=== PATIENT | male | born 1955 | race Caucasian/White ===

== ENCOUNTER → 2023-07-07 10:56 | Outpatient (REF) | payer MEDICARE, OTHER, SELFPAY ==
[2023-07-07 12:50] LABS: Hepatitis B Surface Antigen Negative (Negative)
[2023-07-07 13:01] LABS: HIV Combo Negative (Negative)
[2023-07-07 13:07] LABS: Hepatitis C Antibody Negative (Negative)
== END ==
LOC: REG 10:56
PROVIDERS: ATTENDING PHYSICIAN Internal Medicine
DX: Z23 Encounter for immunization (principal)
CPT/HCPCS: 36415; 86803; 87340; 87389

== ENCOUNTER → 2024-10-07 11:08 | Outpatient (REF) | payer MEDICARE, OTHER, SELFPAY | LOC: HWRAD 11:08 | PROVIDERS: ATTENDING PHYSICIAN Internal Medicine | DX: E04.1 Nontoxic single thyroid nodule (principal) | CPT/HCPCS: 76536 ==